=== PATIENT | female | born 2000 | race Caucasian/White ===

== ENCOUNTER 2025-09-09 09:47 | Outpatient (AMB) | payer OTHER, SELFPAY ==
--- NOTE | 2025-09-09 09:50 | MHC.PC.OV ---
Vital Signs 09/09/25 09:51 Height 5 ft Weight 238 lb BMI 46.5 BP 136/84 Blood Pressure Location Lt brachial Position Sitting Pulse 90 Pulse Source Pulse Oximeter Temp 97.3 F Temp Source Temporal Artery Scan Pulse Oximetry (%) 97 Oxygen Delivery Method Room Air Intake Visit Reasons: [employer] / [employer] Allergies No Known Allergies Allergy (Verified 09/09/25 09:53) Medication List - Last Reconciled 09/09/25 by Marek Song MD No Known Home Meds Tobacco use date assessed: 09/09/25 Dental Screening Dental Screen Date: 09/09/25 Did you have a dental visit in the last 12 months?: Yes Did you have a dental problem in the last 6 months where you did not have access to dental care?: No Was dental information given to patient?: Patient has dentist HPI HPI Comments History of Present Illness Details 24-year-old female with PMH of Migraines, constipation, MDD, presenting for a [facility] patient [facility]. She has a history of chronic migraines, which occur three to four times per week. She reports that some headaches are very severe and located in the back of her head. She treats them with Tylenol or ibuprofen, which sometimes helps, and at other times she goes to sleep for relief. She saw a specialist a few years ago but was not prescribed any medication. During a previous emergency room visit, she was given caffeine pills which were effective. She recently started drinking coffee in the mornings, which has been helping her headaches. The patient's PHQ-9 resulted in a score of 10, indicating mild depression. She states these feelings come and go and may be related to the season. She was previously in therapy but had to stop due to an insurance change and plans to resume. She is not currently interested in medications for depression. She also has anxiety, for which she believes therapy would be helpful. The patient reports experiencing constipation and notes she is lactose intolerant. She does not drink milk or eat chocolate often, but does eat cheese. Her last Pap smear was last year. The last vaccine she received was the COVID-19 vaccine. Her paternal grandmother has a history of a cardiac event in her 50s requiring surgery. 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 1. Little interest or pleasure in doing things: not at all 2. Feeling down, depressed, or hopeless: several days 3. Trouble falling or staying asleep, or sleeping too much: nearly every day 4. Feeling tired or having little energy: more than half the days 5. Poor appetite or overeating: not at all 6. Feeling bad about yourself - or that you are a failure or have let yourself or your family down: not at all 7. Trouble concentrating on things, such as reading the newspaper or watching television: several days 8. Moving or speaking so slowly that other people could have noticed. Or the opposite - being so fidgety or restless that you have been moving around a lot more than usual: nearly every day 9. Thoughts that you would be better off or of hurting yourself in some way: not at all Total score: 10 Depression Screening Interpretation: Positive (Patient has therapy. ) Depression Screening Follow-up: Existing condition Depression Screening Done: Yes 98373 - PHQ-9 Billing: Yes Source: Developed by Drs. Azam Stephenson, Noemi Saavedra, Demetrio Valdez and colleagues, with an educational kelsie from [employer]. Thrive Questionnaire Date Thrive assessed: 09/02/25 I am a: Patient What is your living situation today?: I have a steady place to live Within the past 12 months, did the food you bought not last and you didn't have the money to get more?: Never true Within the past 12 months, did you worry whether your food would run out before you got money to buy more?: Never true Do you have trouble paying for medicines?: No Do you have trouble getting transportation to medical appointments?: No Do you have trouble paying your heating and electricity bill?: No Do you have trouble taking care of your child, family member or friend?: No Do you have trouble with day-to-day activities such as bathing, preparing meals, shopping, managing finances, etc.?: No Are you currently unemployed and looking for a job?: No Are you interested in more education?: Yes Please select the resources that you would like help with: None Currently or been in a relationship where the following occur: No concerns reported THRIVE Score: 0 AUDIT C Alcohol Use Questionnaire (AUDIT-C) 1. How often do you have a drink containing alcohol?: 2-4 times a month 2. How many drinks containing alcohol do you have on a typical day when you are drinking?: 5 or 6 3. How often do you have six or more drinks on one occasion?: Less than monthly Total Score: 5 ANTOINE-7 AMB Questionnaire ANTOINE-7 Date ANTOINE - 7 assessed: 09/09/25 Feeling nervous, anxious, or on edge: 1 = Several days Not being able to stop or control worryin = Several days Worrying too much about different things: 1 = Several days Trouble relaxin = Several days Being so restless that it is hard to sit still: 2 = More than half the days Becoming easily annoyed or irritable: 2 = More than half the days Feeling afraid as if something awful might happen: 2 = More than half the days Total ANTOINE-7 score (0-4 normal; 5-9 mild; 10-14 moderate; 15-21 severe): 10 Source: Developed by Drs. Azam Stephenson, Noemi Saavedra, Demetrio Valdez and colleagues, with an educational kelsie from [employer]. ANTOINE-7 Assessment Billing ANTOINE-7 Assessment Tool: ANTOINE-7 Assessment 86387 Review of Systems Const Details: As per HPI. Physical exam (Primary Care) Vital Signs: Last Vital Signs Temp 97.3 F 09/09/25 09:51 Pulse 90 09/09/25 09:51 BP 136/84 09/09/25 09:51 Pulse Ox 97 09/09/25 09:51 Oxygen Delivery Method Room Air 09/09/25 09:51 BMI result Body Mass Index 46.5 Tobacco/Smoking Status: Tobacco use Status Tobacco use date assessed 09/09/25 09/09/25 09:57 Patient Tobacco Use Status Never used Tobacco 09/09/25 09:57 e-Cigarette/Vaping Use Former Use 09/09/25 09:57 PHQ-9: PHQ-9 Score PHQ-9: Total score 10 09/09/25 09:57 Depression Screening Interpretation: Positive (Patient has therapy. ) Depression Screening Follow-up: Existing condition Thrive Assessment: Date of Thrive Assessment Date Thrive assessed 09/02/25 09/09/25 09:57 Currently or been in a relationship where the following occur: No concerns reported Const Other: Pertinent findings are in BOLD GENERAL APPEARANCE NAD, activity normal for age, well developed/ well nourished, no cyanosis, pallor, or diaphoresis. EYES lids/conjunctiva normal. EARS/NOSE/THROAT Mucous membranes moist, nares normal, lips/teeth normal uvula midline without oral pharyngeal erythema, exudate or swelling TMs normal bilaterally. No lymphangitis/lymphedema. HEAD/NECK normocephalic atraumatic, no facial trauma, neck is supple. RESPIRATORY respiratory effort normal, speaks in full sentences, no tripod position, no accessory muscle use. Lungs clear to auscultation without rhonchi, wheezes, rales CARDIAC Regular rate and rhythm, no edema. ABDOMINAL Soft, ND/NT. No evidence of fluid wave. No pulsatile masses on exam, rebound tenderness, Lazaro sign or pain over Mcburney's point. MUSCLES/EXTREMITIES No abnormal range of motion, no swelling. SKIN Warm, pink and dry. No rashes, dermatoses, petechiae or lesions. NEUROLOGICAL Speech is clear and appropriate. Normal level of consciousness. Gait and coordination are normal. 5/5 strength in all extremities. PSYCH Normal mood and affect. Judgement/competence is appropriate Coding Level of Care Code New Pt Level 4 (36056) New Pt Prev Care 18-39yr(87808 Diagnoses Healthcare maintenance Z00.00 Constipation, unspecified constipation type K59.00 Constipation type: unspecified constipation type Current mild episode of major depressive disorder, unspecified whether recurrent F32.0 Major depression recurrence: unspecified whether recurrent Active/Remission status: currently active Major depression episode severity: mild Intractable migraine without status migrainosus, unspecified migraine type G43.919 Migraine type: unspecified Status migrainosus presence: without status migrainosus Intractability: intractable Additional Codes ANTOINE-7 Assessment Billing - ANTOINE-7 Assessment Tool: ANTOINE-7 Assessment 20248 ([id number]) PHQ-9 - 94445 - PHQ-9 Billing: Yes ([id number]) Time Spent (min) 45 Assessment & Plan Assessment & Plan (1) Healthcare maintenance: Code(s): Z00.00 - Encounter for general adult medical examination without abnormal findings Category: Medical Plan: CBC, CMP, Lipid panel, A1C, TSH w T4, vit D. Ordered. Shingles 2 doses when >50 yo. At 50. COVID: two doses. Completed in the past. Tdap: Discuss next visit. As the patient is worried about side effects since she has to go back to work. Pneumococcal: >50 yo. 18-49 with CKD, lung disease, weakened immune system, Heart disease, DM, cochlear implant. NI. Flu vaccine: Declined as the patient is worried about side effects since she has to go back to work after her visit. Advised the patient that she can get it from retail pharmacy if needed. Colonoscopy: 45-75. At 45. AAA: 65 -75. Not indicated as never smoked. CT lun - 80. Not indicated as never smoked. HPV: Follows with [facility]. HIV: Ordered today. HCV: Ordered today. Dexa: Not indicated. Mammogram: Not indicated. (2) Constipation: Code(s): K59.00 - Constipation, unspecified Category: Medical Qualifiers: Constipation type: unspecified constipation type Qualified Code(s): K59.00 - Constipation, unspecified Plan: - Symptoms are thought to be related to diet, specifically dairy intake. - Recommended complete elimination of dairy products, including cheese and yogurt, to see if symptoms improve. (3) MDD (major depressive disorder): Code(s): F32.9 - Major depressive disorder, single episode, unspecified Category: Medical Qualifiers: Major depression recurrence: unspecified whether recurrent Active/Remission status: currently active Major depression episode severity: mild Qualified Code(s): F32.0 - Major depressive disorder, single episode, mild Plan: - The patient also endorses anxiety, for which therapy is recommended and she is agreeable. - She was previously in therapy and she thinks it was helpful. She will schedule a new appointment with therapy to help with her current depression episode. (4) Migraines: Code(s): G43.909 - Migraine, unspecified, not intractable, without status migrainosus Category: Medical Qualifiers: Migraine type: unspecified Status migrainosus presence: without status migrainosus Intractability: intractable Qualified Code(s): G43.919 - Migraine, unspecified, intractable, without status migrainosus Plan: - The patient reports frequent migraines that are partially responsive to OTC analgesics. - She will continue with Tylenol for symptomatic relief and may try Tylenol with caffeine, as caffeine has been helpful. - Educated the patient on potential migraine triggers including dairy products, chocolate, cheese, and changes in routine. - Advised a trial of dairy elimination to assess for improvement in headaches and constipation. Plan We discussed her primary concerns of chronic migraines, which she experiences 3-4 times weekly, and her history of mild depression and anxiety. I explained the potential link between her diet, specifically dairy products, and her symptoms of migraines and constipation. I recommended a trial of dairy elimination to see if her symptoms improve. We reviewed her depression screening score, and she agreed that resuming therapy would be beneficial. I ordered routine fasting screening labs, including a lipid panel, thyroid panel, and tests for diabetes, Hepatitis C and HIV, and advised her to complete them before our next visit. We will follow up in six months to review the results and reassess her condition. We also discussed vaccinations, which she deferred at this time. Orders: Orders Hemoglobin A1c Today Z00.00 - Encounter for general adult medical examination without abnormal findings TSH reflex Free T4 Today Z00.00 - Encounter for general adult medical examination without abnormal findings Hepatitis C Antibody Reflex Today Z00.00 - Encounter for general adult medical examination without abnormal findings Complete Blood Count no Diff Today Z00.00 - Encounter for general adult medical examination without abnormal findings Comprehensive Met. Panel Today Z00.00 - Encounter for general adult medical examination without abnormal findings Lipid Panel Today Z00.00 - Encounter for general adult medical examination without abnormal findings Vitamin D 25-OH Total Today Z00.00 - Encounter for general adult medical examination without abnormal findings HIV Ab/Ag Today Z00.00 - Encounter for general adult medical examination without abnormal findings
[2025-09-09 09:51] VITALS: BP 136/84; PULSE 90; TEMP 36.3; O2SAT 97; BMI 46.5
--- OUTSIDE RECORDS SUMMARY | 2025-09-09 11:13 | XMS_ITS | Clinical Summary ---
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 Phone Unavailable Primary Care Provider Unavailabl e Allergies No known active allergies Social History Tobacco Use Types Packs/Day Years Used Date Smoking Tobacco: Never Assessed Comments Unknown Sex and Gender Information Value Date Recorded Sex Assigned at Female 06/10/2024 10:12 AM EDT Legal Sex Female 10:11 AM EDT Gender Identity Female 06/10/2024 10:12 AM EDT Sexual Orientation Straight 06/10/2024 10 :12 AM EDT Plan of Treatment Health Maintenance Due Date Last Done Comments Depression Screening 2000 HIV Screening 2000 SDOH Screening 2000 Disability Screening 2000 Alcohol/Substance Use Screening 2012 Tobacco Screening 2012 Family Planning (PISQ) 2015 HPV Vaccines (1 - 3-dose series) 2015 Hepatitis C Screening 2018 DTaP/Tdap/Td Vaccines (1 - Tdap) 2019 Hepatitis B Vaccines (1 of 3 - 19+ 3-dose series) 2019 Pap Smear 2021 COVID-19 Vaccine (3 - 2024-2 6 season) 2025 08/14/2021, 07/14/2021 Influenza Vaccine (#1) 2025 Zoster Vaccines (1 of 2) 2050 RSV Patients and Patients Aged 60 years or older (1 - 1-dose 75+ series) 2075 HIB Vaccines Aged Out No longer eligi ble based on patient's age to complete this topic Hepatitis A Vaccines Aged Out No long er eligible based on patient's age to complete this topic IPV Vaccines Aged Out No longer eligi ble based on patient's age to complete this topic Meningococcal B Vaccine Aged Out No l onger eligible based on patient's age to complete this topic Meningococcal Vaccine Aged Out No valerio juma eligible based on patient's age to complete this topic Pneumococcal Vaccine: Pediatrics (0 to 5 Years) and At-Risk Patients (6 to 49) Years Aged Out No longer eligible b ased on patient's age to complete this topic RSV under 20 months Aged Out No longe r eligible based on patient's age to complete this topic Rotavirus Vaccines Aged Out No longer eligible based on patient's age to complete this topic Insurance [employer] FULL
--- OUTSIDE RECORDS SUMMARY | 2025-09-09 11:13 | XMS_ITS | Clinical Summary ---
Author Organization [facility] Address [address] [place] [phone] Phone Care Team Providers Care Plan Coordinator Name Role Phone Tomasa Street MD Primary Care Provider + Allergies No known active allergies Medications albuterol (PROAIR HFA) 90 mcg/actuation inhaler Inhale 2 puffs into the lungs every 4 (four) hours as needed for wheezing. 18 g 03/16/2023 Active benzonatate (TESSALON) 100 MG capsule Take 2 capsules (200 mg total) by mouth 3 (three) times a day as needed for cough. 21 capsule 03/16/2023 Active Active Problems No known active problems Social History Tobacco Use Types Packs/Day Years Used Date Smoking Tobacco: Never Assessed Education Answer Date Recorded Are you interested in more education? Not on jonel e 02/24/2023 Are you concerned about learning? Not on file 02/24/2023 No 02/24/2023 No 02/24/2023 Digital Access Answer Date Recorded No 03/24/2023 No 03/24/2023 Reliable internet access at home? Not on file 03/24/2023 Device with a working camera? Not on file Comments Unknown Sex and Gender Information Value Date Recorded Sex Assigned at Not on file Legal Sex Female 2:32 PM EST Gender Identity Not on file Sexual Orientation Not on file Last Filed Vital Signs Vital Sign Reading Time Taken Comments Blood Pressure 109/74 03/16/2023 10:18 AM EDT Pulse 106 03/16/2023 10:18 AM EDT Temperature 37.2 C (98.9 F) 03/16/2023 10:18 AM EDT Respiratory Rate 18 03/16/2023 10:18 AM EDT Oxygen Saturation 98% 03/16/2023 10:18 AM EDT Inhaled Oxygen Concentration - - Weight 113.4 kg (250 lb) 12/16/2022 3:21 PM EST Height 152.4 cm (5') 12/16/2022 3:21 PM EST Body Mass Index 48.82 12/16/2022 3:21 PM EST Plan of Treatment Health Maintenance Due Date Last Done Comments Adult Td,Tdap Booster 2000 DEPRESSION SCREENING 2012 SMOKING Hx and SMOKELESS TOB ACCO SCREENING 2013 HPV VACCINES (1 - 3-dose series) 2015 CHLAMYDIA SCREENING 2016 HEPATITIS C SCREENING 2018 HIV ONE-TIME SCREENING (18-6 5 YEARS) 2018 PAP SMEAR 2021 INFLUENZA VACCINE (#1) 2025 COVID-19 VACCINE ( - 2024-2 6 season) 2025 HEPATITIS A VACCINES Aged Out No long er eligible based on patient's age to complete this topic HIB VACCINES Aged Out No longer eligi ble based on patient's age to complete this topic IPV VACCINES Aged Out No longer eligi ble based on patient's age to complete this topic MENINGOCOCCAL VACCINES (ACWY) Aged Out No longer eligible based on patient's age to complete this topic MENINGOCOCCAL VACCINES (B) Aged Out N o longer eligible based on patient's age to complete this topic PNEUMOCOCCAL VACCINES (0-49 years) Aged Out No longer eligible based on patient's age to complete this topic Medical Devices Not on file Insurance [facility] Care Teams Plan Coordinator Relationship Specialty Start Date End Date Tomasa Street MD [address] [place] [phone] PCP - General Pediatrics 12/16/22 Additional Source Comments The information contained in this document represents components of the legal health record. It is not the complete legal health record.[facility]
--- OUTSIDE RECORDS SUMMARY | 2025-09-09 11:13 | XMS_ITS | Data Portability ---
Author Organization [facility] [id number] Address [address] [place] [address] Assessment No assessment recorded. Plan of Treatment Reminders Order Date Submit Date Provider Last Modified By Organization Details Last Modified Time Details Appointments None record ed. Lab None record ed. Referral None record ed. Procedures None record ed. Surgeries None record ed. Imaging None record ed. Medication Orders None record ed. Patient TargetsNo targets recorded. Patient InstructionsNo instructions recorded. Reason for Referral None Reported. Medical Equipment None Reported. Medications Name Sig Start Date Stop Date Status Note LastModified by Organization Details LastModified Time cyclobenzapri ne 10 mg tablet TAKE 1 TABLET BY MOUTH EVERY 8 HOURS FOR 5 DAYS NEEDED FOR MUSCLE SPASM active Not Available Not Available No t Available prednisone 10 mg tablet active Not Available Not Available No t Available hydrocortison e 2.5 % lotion APPLY TOPICALLY TO THE AFFECTED AREA OF SCALP EVERY DAY active Not Available Not Available No t Available oseltamivir 75 mg capsule TAKE 1 CAPSULE BY MOUTH TWICE DAILY active Not Available Not Available No t Available Vitals None Recorded Social History None recorded. Functional Status None recorded. Mental Status None recorded. Family History Nothing Reported. Medical History No medical history recorded. Gynecological HistoryNo gynecological history recorded. Obstetrics History GPAL:G 0 P 0 0 0 0 Past Encounters Encounter ID Performer Location Encounter Start Date Encounter Closed Date Diagnosis/Indication Diagnosis SNOMED-CT Code Diagnosis ICD10 Code Diagnosis IMO Codes Diagnosis Note [id number] [facility] [address] [address] 01/11/2022 15:32:55 01/11/2022 17:00:48 [id number] [facility] _[place] [address] [facility] [place] [address] 07/21/2022 16:30:28 07/21/2022 18:36:14 Health Concerns Section Related Observation LastModified by Organization Detai ls LastModified Time None Recorded Concern Status LastModified by Organization Details LastModified Time None Recorded Advance Directives Directive None Recorded Payers Insurance Date Sequence Insurance Name Policy Number Policy Brown Covered Member ID Brown Member ID Guarantor Name 11/17/2022 1 [place] [facility] Desiree Carter [id number] Desiree Griffin OBGyn Episode No OBEpisode recorded.
== END 2025-09-09 10:21 | disposition home or self-care (01) ==
LOC: HO.HMCH 09:48
PROVIDERS: PCP Internal Medicine; Visit Provider Internal Medicine
DX: Z00.00 Encounter for general adult medical examination without abnormal findings (principal); K59.00 Constipation, unspecified; F32.0 Major depressive disorder, single episode, mild; G43.919 Migraine, unspecified, intractable, without status migrainosus

== ENCOUNTER → 2025-09-09 09:47 | Outpatient (BNVA) | payer OTHER, SELFPAY | PROVIDERS: PCP Internal Medicine; Visit Provider Internal Medicine | DX: Z00.00 Encounter for general adult medical examination without abnormal findings (principal); K59.00 Constipation, unspecified; F32.0 Major depressive disorder, single episode, mild; G43.919 Migraine, unspecified, intractable, without status migrainosus | CPT/HCPCS: 96127 ==